=== PATIENT | male | born 1940 | race African-American/Black ===

== ENCOUNTER 2024-11-22 05:28 | Emergency (ER) | payer MEDICARE, SELFPAY ==
[2024-11-22] VITALS (17 sets, daily range): BP systolic 151–169; BP diastolic 74–83; PULSE 57–69; RESP 14–24; TEMP 36.7; O2SAT 97–100
--- NOTE | ~2024-11-22 | CT_ITS ---
CT head without contrast Indication: Head injury Technique: Serial scans were obtained through the brain without the administration of contrast. Dose reduction technique was used on this scan by utilizing automated exposure control and iterative recon struction technique. The dose-length product (DLP) was 681.00 mGy-cm. Findings: There is no evidence of intracranial hemorrhage, mass lesion, or acute infarct. Chronic lac unar infarcts present in the right basal ganglia and right periventricular white matter. The ventricl es and subarachnoid spaces are dilated, consistent with mild atrophy. Low attenuation regions are se en within the periventricular white matter bilaterally, likely representing changes from chronic micr ovascular ischemic disease. There is no evidence of edema, mass effect or midline shift. The visual ized paranasal sinuses and mastoid air cells are clear. Impression: No intracranial hemorrhage, mass, or acute infarct. Chronic lacunar infarcts in the right basal ganglia and right periventricular white matter. Atrophy and chronic white matter changes, as above. Reviewed, dictated and finalized at [facility]. Impression: No intracranial hemorrhage, mass, or acute infarct. Chronic lacunar infarcts in the right basal ganglia and right periventricular w brett matter. Atrophy and chronic white matter changes, as above.
--- NOTE | ~2024-11-22 | CT_ITS ---
Noncontrast CT scan of the cervical spine Technique: Multiple contiguous axial [address] images of the cervical spine were obtained and rec onstructed in 2D sagittal and coronal planes on the acquisition scanner. Dose reduction technique was used on this scan by utilizing automated exposure control, adjustment of the mA and/or kV according to patient size. The dose-length product (DLP) was 183.79 mGy-cm. Clinical History: Pain Findings: No fractures or dislocations. There are minimal degenerative disc changes in the cervical spine. 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 There is ex tensive facet arthropathy throughout the cervical spine. There is mild right neural foraminal narrowi ng at C2-C3. There is bilateral neural foraminal narrowing at C3-C4. There is bilateral neural forami nal narrowing at C4-C5. There is left neural foraminal narrowing at C5-C6. Probable bilateral neural foraminal narrowing at C6-C7. No prevertebral soft tissue swelling. Impression: No fracture or subluxation of the cervical spine. Degenerative change, as above. Reviewed, dictated and finalized at location . Impression: No fracture or subluxation of the cervical spine. Degenerative change, as above.
--- NOTE | ~2024-11-22 | XR_ITS ---
Portable chest x-ray Comparison: None Clinical History: Weakness Findings: Probable COPD and/or chronic interstitial disease. No acute pulmonary abnormality seen. No pleural effusion or pneumothorax. Cardiomediastinal silhouette is unremarkable. Bones and soft tiss ues are unremarkable. Impression: COPD and/or chronic interstitial disease. No acute consolidation or pleural effusion. Reviewed, dictated and finalized at location . Impression: COPD and/or chronic interstitial disease. No acute consolidation or pleural eff usion.
--- NOTE | 2024-11-22 05:37 | ECG_ITS ---
Test Date: 2024-11-22 05:36:39 Measurements Intervals [place] Rate: 58 P: 68 CT: 159 QRS: -72 QRSD: 150 T: 49 QT: 488 QTc: 483 Interpretive Statements SINUS BRADYCARDIA RIGHT BUNDLE BRANCH BLOCK LEFT ANTERIOR FASCICULAR BLOCK ANTEROSEPTAL INFARCT, AGE INDETERMINATE ABNORMAL ECG No previous ECG available for comparison Electronically Signed On 11-22-2024 07:10:43 CDT by Gonzalo Finch D.O.
[2024-11-22 05:51] LABS: Basophils Percent Auto 0.3 % (0.2-1.2); Eosinophils Absolute Auto 0.2 K/mm3 (0-0.3); Hematocrit 36.9 % (42.0-52.0); Hemoglobin 12.1 g/dL (14.0-18.0); Immature Granulocyte Absolute 0.03 K/mm3 (0.00-0.031); Immature Granulocyte Percent A 0.5 % (0-0.5); Lymphocytes Absolute Auto 1.42 K/mm3 (0.9-3.2); Lymphocytes Percent Auto 23.8 % (18.3-44.2); Mean Corpuscular HGB Conc 32.8 g/dl (32-36); Mean Corpuscular Hemoglobin 29.8 pg (26-34); Mean Corpuscular Volume 90.9 fl (80-100); Mean Platelet Volume 10.7 fl (7.4-10.4); Monocytes Absolute Auto 0.5 K/mm3 (0.1-0.6); Monocytes Percent Auto 8.4 % (2.6-8.5); Neutrophils Absolute Auto 3.8 K/mm3 (1.3-6.7); Platelet Count Result 155 k/mm3 (150-375); Red Blood Count 4.06 M/mm3 (4.6-6.20)
[2024-11-22] MEDS: SODIUM CHLORIDE 0.9% IV 1,000 ML 999 ML IV CONT (06:02)
[2024-11-22 06:05] LABS: Alanine Aminotransferase 21 U/L (6-50); Albumin Level 4.1 g/dL (3.5-5.1); Alkaline Phosphatase 127 U/L (38-126); Anion Gap 8 mmol/L (4-12); Aspartate Amino Transferase 28 U/L (17-59); Bilirubin,Total 0.5 mg/dL (0.2-1.3); Blood Urea Nitrogen 21 mg/dL (9-20); Calcium 9.3 mg/dL (8.4-10.2); Carbon Dioxide 31 mmol/L (22-30); Chloride 98 mmol/L (98-107); Estimated CRCL calculation 50 ml/min; Estimated Glomerular Filt Rate > 60; Glucose 104 mg/dL (65-110); Sodium 137 mmol/L (137-145); Total Protein 6.9 g/dL (6.3-8.2)
--- NOTE | 2024-11-22 06:05 | ED_ITS ---
HPI - General Adult General Chief complaint: Fall <Kenneth Covington MD - Last Filed: 11/22/24 06:07> Stated complaint: FALL OUT OF BED, AMS <Kenneth Covington MD - Last Filed: 11/22/24 06:07> Time Seen by Provider: 11/22/24 05:43 <Kenneth Covington MD - Last Filed: 11/22/24 06:07> History of Present Illness HPI narrative: Patient is a 84-year-old gentleman who presents emergency department with chief complaint of increasing confusion weakness and falls for the last several days today the son found the patient laying on the floor and was somewhat confused. He was able to help him up the patient currently complains of no pain but does report that he feels little confused <Kenneth Covington MD - Last Filed: 11/22/24 06:07> Related Data Allergies/adverse reactions: Allergies Allergy/AdvReac Type Severity Reaction Status Date / Time rosuvastatin (From Crestor) Allergy Severe Swelling Verified 11/22/24 05:36 of Lip/Tongue/Throat <Kenneth Covington MD - Last Filed: 11/22/24 06:07> Review of Systems 2 Review of Systems: A 10 system review of systems was completed on the patient and is negative except for what is stated in the HPI. Nursing and ancillary documentation was reviewed. <Kenneth Covington MD - Last Filed: 11/22/24 06:07> Exam 2 Narrative: GENERAL: Well-appearing, well-nourished, and in no acute distress. HEAD: Normocephalic, atraumatic. EYES: PERRLA and EOMI. ENT: Nares clear, no rhinorrhea or epistaxis. Mucous membranes moist. NECK: Supple. CHEST: Clear to auscultation. No respiratory distress. HEART: Regular rate and rhythm. No murmur heard. Normal peripheral pulses. ABDOMEN: Soft, nontender, nondistended, normal active bowel sounds. EXTREMITIES: Normal range of motion. No edema. SKIN: Warm, dry, no rash. NEURO: No focal deficits. Alert and oriented x2. PSYCH: Normal mood and affect. <Kenneth Covington MD - Last Filed: 11/22/24 06:07> Course Course Emergency Course: Patient signed out to me pending urinalysis and reassessment. Patient had been supplemented/repleted for his potassium with both IV and oral formulations. On my assessment he states he is feeling fine, no complaints. We discussed that his urinalysis showed some microscopic hematuria as well as leukocyte esterase and although there was no white blood cells or evidence of bacteria, reasonable to treat out of an abundance of precaution. Patient and son are in agreement. Patient received 1st dose of ceftriaxone IV while in the emergency department and will be discharged with paper prescription for the rest of the course. They were in town visiting due to a relative's 50th birthday but are otherwise heading back to [place] today where they live. Patient gave preferred pharmacy and I attempted to electronically prescribed there but was unable to. Also provided paper prescription for acetaminophen. Patient confirms he has a primary care physician at home. Stable for discharge. < Myesha Torres MD - Last Filed: 11/22/24 08:02> Vital Signs Vital signs: Vital Signs Temperature 98.0 F 11/22/24 05:28 Pulse Rate 59 L 11/22/24 05:28 Respiratory Rate 14 11/22/24 05:28 Blood Pressure 160/78 H 11/22/24 05:28 Pulse Oximetry 99 11/22/24 05:28 Oxygen Delivery Room Air 11/22/24 05:28 Temperature 98.0 F 11/22/24 05:28 Pulse Rate 61 11/22/24 07:45 Respiratory Rate 14 11/22/24 07:45 Blood Pressure 158/83 H 11/22/24 07:31 Pulse Oximetry 99 11/22/24 07:45 Oxygen Delivery Room Air 11/22/24 05:28 <Kenneth Covington MD - Last Filed: 11/22/24 06:07> Vital Signs Temperature 98.0 F 11/22/24 05:28 Pulse Rate 59 L 11/22/24 05:28 Respiratory Rate 14 11/22/24 05:28 Blood Pressure 160/78 H 11/22/24 05:28 Pulse Oximetry 99 11/22/24 05:28 Oxygen Delivery Room Air 11/22/24 05:28 Temperature 98.0 F 11/22/24 05:28 Pulse Rate 61 11/22/24 07:45 Respiratory Rate 14 11/22/24 07:45 Blood Pressure 158/83 H 11/22/24 07:31 Pulse Oximetry 99 11/22/24 07:45 Oxygen Delivery Room Air 11/22/24 05:28 <Myesha Torres MD - Last Filed: 11/22/24 08:02> Medical Decision Making MDM Narrative Medical decision making narrative: Differential diagnosis includes dementia, electrolyte abnormality, dehydration, infection, ACS, EKG was obtained showed no acute ischemic changes Chest x-ray and CT head and CT C-spine were ordered CBC showed a white count of 6.0 hemoglobin of 12.1 and a platelet count of 155 <Kenneth Covington MD - Last Filed: 11/22/24 06:07> Vital Signs Vital Signs: Vital Signs Temperature 98.0 F 11/22/24 05:28 Pulse Rate 59 L 11/22/24 05:28 Respiratory Rate 14 11/22/24 05:28 Blood Pressure 160/78 H 11/22/24 05:28 Pulse Oximetry 99 11/22/24 05:28 Oxygen Delivery Room Air 11/22/24 05:28 Temperature 98.0 F 11/22/24 05:28 Pulse Rate 61 11/22/24 07:45 Respiratory Rate 14 11/22/24 07:45 Blood Pressure 158/83 H 11/22/24 07:31 Pulse Oximetry 99 11/22/24 07:45 Oxygen Delivery Room Air 11/22/24 05:28 <Kenneth Covington MD - Last Filed: 11/22/24 06:07> Vital Signs Temperature 98.0 F 11/22/24 05:28 Pulse Rate 59 L 11/22/24 05:28 Respiratory Rate 14 11/22/24 05:28 Blood Pressure 160/78 H 11/22/24 05:28 Pulse Oximetry 99 11/22/24 05:28 Oxygen Delivery Room Air 11/22/24 05:28 Temperature 98.0 F 11/22/24 05:28 Pulse Rate 61 11/22/24 07:45 Respiratory Rate 14 11/22/24 07:45 Blood Pressure 158/83 H 11/22/24 07:31 Pulse Oximetry 99 11/22/24 07:45 Oxygen Delivery Room Air 11/22/24 05:28 <Myesha Torres MD - Last Filed: 11/22/24 08:02> Lab Data Result diagrams: 11/22/24 05:41 11/22/24 05:41 <Kenneth Covington MD - Last Filed: 11/22/24 06:07> Labs: Lab Results 11/22/24 11/22/24 11/22/24 Range/Units 05:41 06:02 06:46 WBC 6.0 (4.5-10.0) K/mm3 RBC 4.06 L (4.6-6.20) M/mm3 Hgb 12.1 L (14.0-18.0) g/dL Hct 36.9 L (42.0-52.0) % MCV 90.9 (80-100) fl MCH 29.8 (26-34) pg MCHC 32.8 (32-36) g/dl RDW 15.0 H (11.5-14.5) % Plt Count 155 (150-375) k/mm3 MPV 10.7 H (7.4-10.4) fl Immature Gran % (Auto) 0.5 (0-0.5) % Neut % (Auto) 64.0 (45.5-73.1) % Lymph % (Auto) 23.8 (18.3-44.2) % [place] % (Auto) 8.4 (2.6-8.5) % Eos % (Auto) 3.0 (0-4.4) % Baso % (Auto) 0.3 (0.2-1.2) % Lymph # (Auto) 1.42 (0.9-3.2) K/mm3 [place] # (Auto) 0.5 (0.1-0.6) K/mm3 Eos # (Auto) 0.2 (0-0.3) K/mm3 Baso # (Auto) 0.0 (0.0-0.1) K/mm3 Abs Immat Gran (auto) 0.03 (0.00-0.031) K/mm3 Absolute Neuts (auto) 3.8 (1.3-6.7) K/mm3 Absolute Nucleated RBC 0.000 (0.0-0.012) K/mm3 Nucleated RBC % 0.0 (0.0-0.2) % PT 13.0 (11.1-14.7) Seconds INR 1.0 APTT 26.1 (22.3-36.8) Seconds Sodium 137 (137-145) mmol/L Potassium 2.8 L* (3.4-5.0) mmol/L Chloride 98 (98-107) mmol/L Carbon Dioxide 31 H (22-30) mmol/L Anion Gap 8 (4-12) mmol/L BUN 21 H (9-20) mg/dL Creatinine 0.94 (0.7-1.3) mg/dL Estim Creat Clear Calc 50 ml/min Estimated GFR > 60 (59 - ) Glucose 104 (65-110) mg/dL Lactic Acid 1.7 (0.7-2.0) mmol/L Calcium 9.3 (8.4-10.2) mg/dL Magnesium 1.7 (1.6-2.3) mg/dL Total Bilirubin 0.5 (0.2-1.3) mg/dL AST 28 (17-59) U/L ALT 21 (6-50) U/L Alkaline Phosphatase 127 H (38-126) U/L Troponin I < 0.012 (0.000-0.034) ng/mL Total Protein 6.9 (6.3-8.2) g/dL Albumin 4.1 (3.5-5.1) g/dL Urine Color Yellow (Yellow) Urine Appearance Clear (Clear) Urine pH 5.5 (5.0-9.0) Ur Specific [place] 1.015 (1.001-1.035) Urine Protein Trace (Negative) mg/dL Urine Glucose (UA) Negative (Negative) mg/dL Urine Ketones Negative (Negative) mg/dL Ur Blood (Man) 1+ H (Negative) Urine Nitrate Negative (Negative) Urine Bilirubin Negative (Negative) Urine Urobilinogen 1.0 (<2.0) mg/dL Add Ur Microanalysis Reviewed Leukocyte Esterase Rfl 2+ H (Negative) ELZA/UL Urine RBC 6-10 H (0-2) /hpf Urine WBC 0-5 (0-3) /hpf Ur Squamous Epith Cells None seen (Few) /hpf Urine Bacteria None seen /hpf Urine Casts 0-2 Influenza A (RT-PCR) Negative (Negative) Influenza B (RT-PCR) Negative (Negative) RSV (RT-PCR) Negative (Negative) SARS-CoV-2 RNA (RT-PCR) Negative (Negative) <Kenneth Covington MD - Last Filed: 11/22/24 06:07> Lab Results 11/22/24 11/22/24 11/22/24 Range/Units 05:41 06:02 06:46 WBC 6.0 (4.5-10.0) K/mm3 RBC 4.06 L (4.6-6.20) M/mm3 Hgb 12.1 L (14.0-18.0) g/dL Hct 36.9 L (42.0-52.0) % MCV 90.9 (80-100) fl MCH 29.8 (26-34) pg MCHC 32.8 (32-36) g/dl RDW 15.0 H (11.5-14.5) % Plt Count 155 (150-375) k/mm3 MPV 10.7 H (7.4-10.4) fl Immature Gran % (Auto) 0.5 (0-0.5) % Neut % (Auto) 64.0 (45.5-73.1) % Lymph % (Auto) 23.8 (18.3-44.2) % [place] % (Auto) 8.4 (2.6-8.5) % Eos % (Auto) 3.0 (0-4.4) % Baso % (Auto) 0.3 (0.2-1.2) % Lymph # (Auto) 1.42 (0.9-3.2) K/mm3 [place] # (Auto) 0.5 (0.1-0.6) K/mm3 Eos # (Auto) 0.2 (0-0.3) K/mm3 Baso # (Auto) 0.0 (0.0-0.1) K/mm3 Abs Immat Gran (auto) 0.03 (0.00-0.031) K/mm3 Absolute Neuts (auto) 3.8 (1.3-6.7) K/mm3 Absolute Nucleated RBC 0.000 (0.0-0.012) K/mm3 Nucleated RBC % 0.0 (0.0-0.2) % PT 13.0 (11.1-14.7) Seconds INR 1.0 APTT 26.1 (22.3-36.8) Seconds Sodium 137 (137-145) mmol/L Potassium 2.8 L* (3.4-5.0) mmol/L Chloride 98 (98-107) mmol/L Carbon Dioxide 31 H (22-30) mmol/L Anion Gap 8 (4-12) mmol/L BUN 21 H (9-20) mg/dL Creatinine 0.94 (0.7-1.3) mg/dL Estim Creat Clear Calc 50 ml/min Estimated GFR > 60 (59 - ) Glucose 104 (65-110) mg/dL Lactic Acid 1.7 (0.7-2.0) mmol/L Calcium 9.3 (8.4-10.2) mg/dL Magnesium 1.7 (1.6-2.3) mg/dL Total Bilirubin 0.5 (0.2-1.3) mg/dL AST 28 (17-59) U/L ALT 21 (6-50) U/L Alkaline Phosphatase 127 H (38-126) U/L Troponin I < 0.012 (0.000-0.034) ng/mL Total Protein 6.9 (6.3-8.2) g/dL Albumin 4.1 (3.5-5.1) g/dL Urine Color Yellow (Yellow) Urine Appearance Clear (Clear) Urine pH 5.5 (5.0-9.0) Ur Specific [place] 1.015 (1.001-1.035) Urine Protein Trace (Negative) mg/dL Urine Glucose (UA) Negative (Negative) mg/dL Urine Ketones Negative (Negative) mg/dL Ur Blood (Man) 1+ H (Negative) Urine Nitrate Negative (Negative) Urine Bilirubin Negative (Negative) Urine Urobilinogen 1.0 (<2.0) mg/dL Add Ur Microanalysis Reviewed Leukocyte Esterase Rfl 2+ H (Negative) ELZA/UL Urine RBC 6-10 H (0-2) /hpf Urine WBC 0-5 (0-3) /hpf Ur Squamous Epith Cells None seen (Few) /hpf Urine Bacteria None seen /hpf Urine Casts 0-2 Influenza A (RT-PCR) Negative (Negative) Influenza B (RT-PCR) Negative (Negative) RSV (RT-PCR) Negative (Negative) SARS-CoV-2 RNA (RT-PCR) Negative (Negative) <Myesha Torres MD - Last Filed: 11/22/24 08:02> Discharge Plan Discharge Clinical Impression: Abnormal urinalysis, Hypokalemia, Fall <Kenneth Covington MD - Last Filed: 11/22/24 06:07> Patient Disposition: Home <Kenneth Covington MD - Last Filed: 11/22/24 06:07> Condition: Stable <Kenneth Covington MD - Last Filed: 11/22/24 06:07> Instructions: Antibiotic Form, Urinary Tract Infection in Men (DC), Hypokalemia (ED), Fall Prevention for Older Adults (ED) <Kenneth Covington MD - Last Filed: 11/22/24 06:07> Additional Instructions: As we discussed, your potassium was somewhat low and this was supplemented with both IV and oral potassium. You also had some evidence for a possible urinary tract infection in your urine and out an abundance of precaution we will proceed to treat this. You received your 1st dose of antibiotic while in the emergency department and the rest of the course has been prescribed. I was unable to electronically prescribed to your preferred [facility] pharmacy on [address] in [facility] but you are being provided a paper copy which you can take there. You do not have to start this until tomorrow (it appears they are closed today anyways) since you had a dose of IV today so that will be sufficient. Follow-up with your primary care physician at home. Return to the emergency department with any new worsening or unmanaged symptoms. For any residual pain that you might experience from the fall, it is safe to take maximum 4000 mg acetaminophen per day. <Kenneth Covington MD - Last Filed: 11/22/24 06:07> Patient Language: Polish <Kenneth Covington MD - Last Filed: 11/22/24 06:07> Prescriptions: New cefpodoxime 200 mg tablet 200 mg PO BID 12 Days Qty: 24 0RF Rx Instructions: must administer with a meal/food cefpodoxime 200 mg tablet 200 mg PO BID 12 Days Qty: 24 0RF Rx Instructions: must administer with a meal/food acetaminophen 500 mg capsule 1,000 mg PO Q6H PRN (Reason: pain) Qty: 30 0RF <Kenneth Covington MD - Last Filed: 11/22/24 06:07> Follow-up/Referrals: Regis Strickland [Other] <Kenneth Covington MD - Last Filed: 11/22/24 06:07> Time of Disposition: 08:00 <Kenneth Covington MD - Last Filed: 11/22/24 06:07> 08:00 <Myesha Torres MD - Last Filed: 11/22/24 08:02>
[2024-11-22 06:13] LABS: Partial Thromboplastin Time 26.1 Seconds (22.3-36.8)
--- NOTE | 2024-11-22 06:14 | PC.NURSE ---
Patient taken to CT via stretcher at this time.
[2024-11-22 06:16] LABS: Magnesium 1.7 mg/dL (1.6-2.3)
[2024-11-22 06:19] LABS: Lactic Acid Reflex 1.7 mmol/L (0.7-2.0)
[2024-11-22 06:28] LABS: Troponin I < 0.012 ng/mL (0.000-0.034)
[2024-11-22] MEDS: POTASSIUM CHLORIDE 20 MEQ PACKET (FOR LIQUID) 40 MEQ PO (06:28)
[2024-11-22] MEDS: KCL 20 MEQ/SW 100 ML 100 ML 50 MEQ IVPB (06:29)
[2024-11-22 06:34] LABS: Potassium 2.8 mmol/L (3.4-5.0)
[2024-11-22 06:46] LABS: Influenza A QL RT-PCR Negative (Negative); Influenza B QL RT-PCR Negative (Negative); RSV RNA, RT-PCR Negative (Negative); SARS-CoV-2 RNA PCR Negative (Negative)
[2024-11-22 07:08] LABS: Add Urine Microscopic? YES; Appearance Urine Clear (Clear); Bacteria Urine None Seen /hpf; Bilirubin Urine Negative (Negative); Blood Urine 1+ (Negative); Color Urine Yellow (Yellow); Glucose Urine UA Negative (Negative); Ketones Urine Negative (Negative); Leukocyte Esterase Ur 2+ LEU/UL (Negative); Need Manual Microscopic Reviewed; Nitrate Urine Negative (Negative); Non Pathogenic Casts 0-2; Protein Urine Trace mg/dL (Negative); Specific Grav Ur 1.015 (1.001-1.035); Squamous Epithelial Cell Urine None Seen /hpf (Few); WBC Urine 0-5 /hpf (0-3); pH Urine 5.5 (5.0-9.0)
== END 2024-11-22 08:29 | disposition home or self-care (01) ==
PROVIDERS: Emergency Medicine; Emergency Provider Student in an Organized Health Care Education/Training Program
DX: R82.90 Unspecified abnormal findings in urine (principal); E87.6 Hypokalemia; W19.XXXA Unspecified fall, initial encounter; Z20.822 Contact with and (suspected) exposure to COVID-19
CPT/HCPCS: 36415; 70450; 71045; 72125; 80053; 81001; 83605; 83735; 84484; 85025; 85610; 85730; 87086; 87637; 93005; 96365; 96366; 96367; 99284; A9270; J0696; J3480; J7030